=== PATIENT | male | born 1950 | race Caucasian/White ===

== ENCOUNTER 2018-01-09 05:47 | Observation (INO) | payer MEDICARE, BC ==
[2018-01-09] MEDS: SOD CHLORIDE 0.9% 500 ML IV (05:52)
[2018-01-09 06:37] LABS: ADD MAN DIFF? NO
[2018-01-09 06:39] LABS: BASOPHILS % 0.3 % (0.0-2.0); EOSINOPHILS % 0.8 % (0.0-7.0); HEMOGLOBIN 9.8 g/dl (14.0-18.0); LYMPHOCYTES % 24.9 % (15.0-51.0); MEAN CORPUSCULAR HEMOGLOBIN 31.3 pg (29.0-33.0); MEAN CORPUSCULAR VOLUME 89.5 fl (82.0-101.0); MEAN PLATELET VOLUME 9.6 fl (7.4-10.4); MONOCYTE # 0.4 10^3/ul (0.3-0.9); MONOCYTES % 9.8 % (0.0-11.0); NEUTROPHIL # 2.5 10^3/ul (1.6-7.5); NEUTROPHILS % 63.4 % (39.0-77.0); PLATELET COUNT 100 10^3/UL (140-415); RED BLOOD COUNT 3.13 10^6/ul (4.70-6.10); RED CELL DISTRIBUTION WIDTH 13.5 % (11.5-14.5)
[2018-01-09 06:39] LABS: WHITE BLOOD COUNT 3.9 10^3/ul (4.8-10.8)
[2018-01-09 07:03] LABS: ANION GAP 16 (8-16); BLOOD UREA NITROGEN 25 mg/dl (7-20); CALCIUM 8.3 mg/dl (8.4-10.2); CARBON DIOXIDE 24 mmol/L (21-31); CHLORIDE 106 mmol/L (97-110); CREATININE 1.24 mg/dl (0.61-1.24); GLUCOSE 145 mg/dl (70-220); POTASSIUM 4.1 mmol/L (3.5-5.1); SODIUM 142 mmol/L (135-144)
[2018-01-09 07:15] LABS: TROPONIN-I < 0.012 ng/ml (0.00-0.12)
[2018-01-09] MEDS: MECLIZINE 12.5 MG TAB PO (07:36)
[2018-01-09] MEDS: LORAZEPAM 2 MG INJ IV (07:36)
[2018-01-09] MEDS ORDERED: ACETAMINOPHEN 325 MG TAB PO (08:30)
[2018-01-09] MEDS ORDERED: ONDANSETRON 4 MG INJ IV (08:30)
[2018-01-09] MEDS ORDERED: traMADol 50 MG TAB PO (09:30)
[2018-01-09] MEDS ORDERED: NITROGLYCERIN (SL) 0.4 MG TAB SL (09:30)
[2018-01-09] MEDS ORDERED: clonAZEPAM 0.5 MG TAB PO (09:30)
[2018-01-09] MEDS: VALSARTAN 80 MG TAB PO (09:30)
[2018-01-09] MEDS ORDERED: ALBUTEROL 0.083% (NEB) 2.5 MG/3 ML AMP HHN (09:30)
[2018-01-09] MEDS ORDERED: GLUCOSE GEL 15 GRAM TUBE PO ×2 (10:30)
[2018-01-09] MEDS ORDERED: GLUCOSE GEL 15 GRAM TUBE BUCCAL (10:30)
[2018-01-09] MEDS ORDERED: DEXTROSE 50% 50 ML SYRINGE IV ×2 (10:30)
[2018-01-09] MEDS ORDERED: GLUCAGON 1 MG INJ IM (10:30)
[2018-01-09 10:33] LABS: HEMOGLOBIN A1C 5.3 % (0-5.9)
[2018-01-09 10:40] LABS: IRON 53 ug/dl (35-150)
[2018-01-09 10:41] LABS: ALANINE AMINOTRANSFERASE 46 IU/L (13-69); ALBUMIN 3.6 g/dl (3.3-4.9); ALKALINE PHOSPHATASE 41 IU/L (42-121); ASPARTATE AMINO TRANSFERASE 29 IU/L (15-46); BILIRUBIN,INDIRECT 0.8 mg/dl (0-1.1); BILIRUBIN,TOTAL 0.8 mg/dl (0.2-1.3); CREATINE KINASE 39 IU/L (23-200); MAGNESIUM 1.9 mg/dl (1.7-2.5); PHOSPHORUS 2.1 mg/dl (2.5-4.9)
[2018-01-09 10:50] LABS: % IRON SATURATION 17 % SAT (22-52); TOTAL IRON BINDING CAPACITY 304 ug/dl (241-421)
[2018-01-09 10:54] LABS: CK INDEX 0.6
[2018-01-09 10:55] LABS: CK-MB < 0.22 ng/ml (0.0-2.4); TROPONIN-I < 0.012 ng/ml (0.00-0.12)
[2018-01-09] MEDS: RANOLAZINE (SR) 500 MG TAB PO ×3 (11:11→21:50)
[2018-01-09] MEDS: AMIODARONE 200 MG TAB PO (11:12)
[2018-01-09] MEDS: CLOPIDOGREL 75 MG TAB PO (11:13)
[2018-01-09] MEDS: PANTOPRAZOLE (EC) 40 MG TAB PO (11:26)
[2018-01-09] MEDS: INSULIN ASPART [NOVOLOG] 3 ML PEN SC ×3 (11:32→21:00)
[2018-01-09 13:10] LABS: FOLATE 17.9 ng/ml (2.8-20.0)
[2018-01-09 14:18] LABS: RETICULOCYTE COUNT % 2.7 % (0.5-1.5)
[2018-01-09 14:18] LABS: RETICULOCYTE RBC 3.03
[2018-01-09 14:30] LABS: LACTATE DEHYDROGENASE 395 IU/L (313-618)
[2018-01-09] MEDS: POTASSIUM PHOSPHATE 15 MM in SOD CHLORIDE 0.9% 250 ML IVPB (14:38)
[2018-01-09 18:11] LABS: CREATINE KINASE 35 IU/L (23-200)
[2018-01-09 18:23] LABS: CK INDEX 0.6; CK-MB < 0.22 ng/ml (0.0-2.4); TROPONIN-I < 0.012 ng/ml (0.00-0.12)
[2018-01-09] MEDS: metFORMIN 500 MG TAB PO (18:31)
[2018-01-09] MEDS: MAGNESIUM SULFATE 2 GM/50 ML 50 ML IVPB (18:31)
[2018-01-09] MEDS: ATORVASTATIN 80 MG TAB PO ×2 (21:00→21:50)
[2018-01-10] MEDS: ACCU-CHEK XX (02:00)
[2018-01-10] MEDS: PANTOPRAZOLE (EC) 40 MG TAB PO (06:28)
[2018-01-10 06:41] LABS: ADD MAN DIFF? NO
[2018-01-10 06:48] LABS: ABNORMAL IP MESSAGE 1; BASOPHILS % 0.5 % (0.0-2.0); EOSINOPHILS # 0.1 10^3/ul (0.0-0.5); EOSINOPHILS % 1.5 % (0.0-7.0); HEMATOCRIT 28.3 % (42.0-52.0); HEMOGLOBIN 9.8 g/dl (14.0-18.0); LYMPHOCYTES # 1.1 10^3/ul (0.8-2.9); LYMPHOCYTES % 27.4 % (15.0-51.0); MEAN CORPUSCULAR HEMOGLOBIN 30.7 pg (29.0-33.0); MEAN CORPUSCULAR HGB CONC 34.6 g/dl (32.0-37.0); MEAN CORPUSCULAR VOLUME 88.7 fl (82.0-101.0); MEAN PLATELET VOLUME 9.5 fl (7.4-10.4); MONOCYTE # 0.4 10^3/ul (0.3-0.9); NEUTROPHIL # 2.5 10^3/ul (1.6-7.5); NEUTROPHILS % 60.6 % (39.0-77.0); PLATELET COUNT 92 10^3/UL (140-415); POSITIVE DIFF @See below; RED BLOOD COUNT 3.19 10^6/ul (4.70-6.10); RED CELL DISTRIBUTION WIDTH 13.5 % (11.5-14.5)
[2018-01-10 06:48] LABS: WHITE BLOOD COUNT 4.1 10^3/ul (4.8-10.8)
[2018-01-10 07:22] LABS: ANION GAP 15 (8-16); BLOOD UREA NITROGEN 16 mg/dl (7-20); CALCIUM 8.7 mg/dl (8.4-10.2); CARBON DIOXIDE 23 mmol/L (21-31); CHLORIDE 106 mmol/L (97-110); CREATININE 1.09 mg/dl (0.61-1.24); GLUCOSE 116 mg/dl (70-220); PHOSPHORUS 2.6 mg/dl (2.5-4.9); SODIUM 140 mmol/L (135-144)
[2018-01-10] MEDS: metFORMIN 500 MG TAB PO ×2 (07:55→17:51)
[2018-01-10] MEDS: INSULIN ASPART [NOVOLOG] 3 ML PEN SC ×4 (07:55→20:37)
[2018-01-10] MEDS: [UNRECOGNIZED DRUG - REMARK] XX ×2 (08:30→16:30)
[2018-01-10] MEDS: ESCITALOPRAM 10 MG TAB PO (08:42)
[2018-01-10] MEDS: FISH OIL 1,000 MG CAP PO ×2 (08:42→20:34)
[2018-01-10] MEDS: RANOLAZINE (SR) 500 MG TAB PO ×2 (08:42→20:34)
[2018-01-10] MEDS: FUROSEMIDE 40 MG TAB PO (08:43)
[2018-01-10] MEDS: FOLIC ACID 1 MG TAB PO (08:44)
[2018-01-10] MEDS: POTASSIUM CHLORIDE (SR) 20 MEQ TAB PO (08:44)
[2018-01-10] MEDS: ASPIRIN (EC) 81 MG TAB PO (08:44)
[2018-01-10] MEDS: CLOPIDOGREL 75 MG TAB PO (08:44)
[2018-01-10] MEDS: VALSARTAN 80 MG TAB PO (08:44)
[2018-01-10] MEDS: AMIODARONE 200 MG TAB PO (08:44)
[2018-01-10] MEDS: CYANOCOBALAMIN 1000 MCG INJ IM (08:46)
[2018-01-10] MEDS ORDERED: NON-FORMULARY/PATIENT OWN MED (Eplerenone (Inspra) 25 MG) PO (09:00)
[2018-01-10 09:37] LABS: HOMOCYSTEINE - CARDIOVASCULAR 17.9 umol/L (<11.4)
[2018-01-10 12:32] LABS: HAPTOGLOBIN 106 mg/dL (43-212)
[2018-01-10 12:45] LABS: PATH REVIEW CH
[2018-01-10] MEDS: ATORVASTATIN 80 MG TAB PO (20:34)
[2018-01-10] MEDS: BISACODYL (EC) 5 MG TAB PO (23:15)
[2018-01-11] MEDS: [UNRECOGNIZED DRUG - REMARK] XX ×3 (00:30→16:30)
[2018-01-11] MEDS: ACCU-CHEK XX (01:48)
[2018-01-11] MEDS: PANTOPRAZOLE (EC) 40 MG TAB PO (05:28)
[2018-01-11 07:08] LABS: ADD MAN DIFF? NO
[2018-01-11 07:10] LABS: BASOPHILS % 0.2 % (0.0-2.0); EOSINOPHILS # 0.1 10^3/ul (0.0-0.5); EOSINOPHILS % 1.6 % (0.0-7.0); HEMATOCRIT 30.3 % (42.0-52.0); HEMOGLOBIN 10.3 g/dl (14.0-18.0); LYMPHOCYTES # 1.2 10^3/ul (0.8-2.9); LYMPHOCYTES % 27.2 % (15.0-51.0); MEAN CORPUSCULAR VOLUME 91.3 fl (82.0-101.0); MEAN PLATELET VOLUME 9.4 fl (7.4-10.4); MONOCYTE # 0.4 10^3/ul (0.3-0.9); MONOCYTES % 9.9 % (0.0-11.0); NEUTROPHIL # 2.6 10^3/ul (1.6-7.5); NEUTROPHILS % 60.6 % (39.0-77.0); PLATELET COUNT 105 10^3/UL (140-415); RED BLOOD COUNT 3.32 10^6/ul (4.70-6.10); RED CELL DISTRIBUTION WIDTH 13.5 % (11.5-14.5)
[2018-01-11 07:10] LABS: WHITE BLOOD COUNT 4.3 10^3/ul (4.8-10.8)
[2018-01-11 07:31] LABS: ANION GAP 12 (8-16); BLOOD UREA NITROGEN 20 mg/dl (7-20); CALCIUM 8.8 mg/dl (8.4-10.2); CARBON DIOXIDE 27 mmol/L (21-31); CHLORIDE 104 mmol/L (97-110); CREATININE 1.13 mg/dl (0.61-1.24); GLUCOSE 97 mg/dl (70-220); POTASSIUM 4.2 mmol/L (3.5-5.1); SODIUM 139 mmol/L (135-144)
[2018-01-11] MEDS: INSULIN ASPART [NOVOLOG] 3 ML PEN SC ×3 (07:55→17:16)
[2018-01-11] MEDS: FOLIC ACID 1 MG TAB PO (08:15)
[2018-01-11] MEDS: FISH OIL 1,000 MG CAP PO (08:15)
[2018-01-11] MEDS: ASPIRIN (EC) 81 MG TAB PO (08:15)
[2018-01-11] MEDS: CYANOCOBALAMIN 1000 MCG INJ IM (08:15)
[2018-01-11] MEDS: metFORMIN 500 MG TAB PO ×2 (08:16→17:16)
[2018-01-11] MEDS: POTASSIUM CHLORIDE (SR) 20 MEQ TAB PO (08:16)
[2018-01-11] MEDS: CLOPIDOGREL 75 MG TAB PO (08:16)
[2018-01-11] MEDS: ESCITALOPRAM 10 MG TAB PO (08:16)
[2018-01-11] MEDS: VALSARTAN 80 MG TAB PO (08:16)
[2018-01-11] MEDS: RANOLAZINE (SR) 500 MG TAB PO (08:16)
[2018-01-11] MEDS: AMIODARONE 200 MG TAB PO (08:18)
[2018-01-11] MEDS: FUROSEMIDE 40 MG TAB PO (09:36)
[2018-01-11] MEDS: SOD CHLORIDE 0.9% 100 ML (10:14)
[2018-01-11] MEDS: IOHEXOL 100 ML (10:15)
== END 2018-01-11 17:20 | disposition home health service (06) ==
LOC: E/R 05:47 → TEL 08:25
PROVIDERS: Family Medicine
DX: R42 Dizziness and giddiness (principal); E53.8 Deficiency of other specified B group vitamins; D61.818 Other pancytopenia; I25.10 Atherosclerotic heart disease of native coronary artery without angina pectoris; Z95.5 Presence of coronary angioplasty implant and graft; I11.0 Hypertensive heart disease with heart failure; I50.22 Chronic systolic (congestive) heart failure; E78.5 Hyperlipidemia, unspecified; Z95.810 Presence of automatic (implantable) cardiac defibrillator; I65.23 Occlusion and stenosis of bilateral carotid arteries; I48.0 Paroxysmal atrial fibrillation; I25.5 Ischemic cardiomyopathy; Z79.82 Long term (current) use of aspirin; Z87.891 Personal history of nicotine dependence; E11.9 Type 2 diabetes mellitus without complications; Z79.4 Long term (current) use of insulin
CPT/HCPCS: 36415; 70450; 70498; 71045; 80048; 80076; 82550; 82553; 82607; 82746; 82962; 83010; 83036; 83090; 83540; 83615; 83735; 83921; 84100; 84443; 84484; 85025; 85045; 93005; 93306; 93880; 96374; 97110; 97116; 97164; 97530; 99285-25; G0378